=== PATIENT | male | born 1995 | race American Indian/Alaskan Native ===

== ENCOUNTER 2017-01-19 12:30 | Emergency (ER) | payer SELFPAY ==
[2017-01-19] MEDS ORDERED: BOOSTRIX IM ONE (18:10)
[2017-01-19] MEDS ORDERED: HYDROGEN PEROXIDE TP ONE (18:43)
[2017-01-19] MEDS ORDERED: NACL 0.9% IR ONE (18:44)
[2017-01-19 19:39] VITALS: BP 138/84
--- NOTE | 2017-01-19 22:07 | Emergency Department Report ---
Entered by GILBERTO CONTRERAS, acting as scribe for GLORIA MARTINEZ NP. ED Laceration HPI - HPI Chief Complaint: Wound/Laceration Stated Complaint: THUMB LACERATION/WORK RELATED Time Seen by Provider: 01/19/17 18:08 Location: Upper Extremity (distal left thumb) Severity: moderate Tetanus Status: Unknown Laceration Symptoms: Yes Pain, No Foreign Body Sensation, No Numbness, No Weakness Other History: 21 year old male with no significant PMHx presents to the ED c/o a distal left thumb laceration that occurred this morning at 09:45. 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 Rates pain a 2 out of 10 in severity. Associated symptom include left thumb pain, but he denies numbness, tingling, chest pain, loss of consciousness, and shortness of breath. Notes that he cleaned the wound with soap and water [employer]. Allergic to Ibuprofen. ED Review of Systems ROS: Stated complaint: THUMB LACERATION/WORK RELATED Other details as noted in HPI Comment: All other systems reviewed and negative Constitutional: denies: chills, fever, other (tingling and loss of consciousness ) Eyes: denies: eye pain, eye discharge, vision change ENT: denies: ear pain, throat pain Respiratory: denies: orthopnea, shortness of breath, SOB with exertion, SOB at rest Cardiovascular: denies: chest pain, dyspnea on exertion, orthopnea Gastrointestinal: denies: abdominal pain, nausea, diarrhea Musculoskeletal: other (left thumb pain) Skin: other (laceration on left thumb under thumb nail). denies: rash Neurological: denies: numbness Psychiatric: denies: anxiety, depression Hematological/Lymphatic: denies: easy bleeding, easy bruising Laceration Physical Exam - Exam General: Vital signs noted. No distress. Alert and acting appropriately. - General: No Limitations, alert, in no apparent distress - Head Exam: atraumatic, normocephalic - Eye exam: Normal appearance - ENT exam: mucous membranes moist -Neck exam: Normal inspection, lymphadenopathy - Respiratory exam: normal lung sounds bilaterally. No respiratory distress - Cardiovascular Exam: Regular rate, normal rhythm. - GI/Abdominal Exam: Abdomen is soft, normal bowel sounds. - Extremities Exam: normal inspection. Normal capillary refill. Good sensation in left thumb. - Back Exam: normal inspection - Neurological Exam: Present: alert, oriented X3. Normal capillary refill. Good sensation in left thumb. - Skin exam: warm, dry, intact, normal color. No rash. 2 cm laceration to distal left thumb. -Psychiatric exam: Present: normal affect, normal mood Wound Length (cm): 2 (superficial) Laceration Location: Other (2 cm laceration to distal left thumb) Laceration Exam: Yes Normal Distal CMS, No Foreign Body, No Exposed Tendon, Vessel, or Nerve, No Tendon Injury ED Course Vital Signs 01/19/17 13:32 Temperature 98.6 F Pulse Rate 59 L Respiratory 16 Rate Blood Pressure 143/96 O2 Sat by Pulse 100 Oximetry Vital Signs 01/19/17 01/19/17 13:32 19:01 Temperature 98.6 F Pulse Rate 59 L Respiratory 16 Rate Blood Pressure 143/96 Blood Pressure 120/85 [Right] O2 Sat by Pulse 100 Oximetry Vital Signs 01/19/17 01/19/17 13:32 19:01 Temperature 98.6 F Pulse Rate 59 L Respiratory 16 Rate Blood Pressure 143/96 Blood Pressure 120/85 [Right] O2 Sat by Pulse 100 Oximetry Vital Signs 01/19/17 01/19/17 01/19/17 13:32 19:01 19:38 Temperature 98.6 F Pulse Rate 59 L 82 Respiratory 16 16 Rate Blood Pressure 143/96 Blood Pressure 120/85 138/84 [Right] O2 Sat by Pulse 100 100 Oximetry - Reevaluation(s) Reevaluation #1: 01/19/17 19:28 Dr. Morales assessed the patient. Agreed to let us care in the ED. - Laceration /Wound Repair Left Finger Wound Location: upper extremity (left distal thumb) Wound Length (cm): 2 Wound's Depth, Shape: superficial Wound Explored: clean Irrigated w/ Saline (ccs): 200 (soaked finger with Hibiclens) Betadine Prep?: Yes Wound Debrided: minimal Wound Repaired With: Dermabond Layer Closure?: No Progress: This is a 21-year-old male that presents with a laceration of the distal left thumb. Under sterile field. I irrigated with Hibiclens and normal saline. Applied Dermabond to affected area with minimal to none bleeding. Patient tolerated well no signs of any complications noted. ED Medical Decision Making - Medical Decision Making Ed course: 21-year-old male that presents with laceration of the left distal thumb. 1- patient soaked left thumb and 200 mL of normal saline and Hibiclens. 2- Dr. Morales aware of patient and treatment plan. 3- Dermabond to affected thumb. 4- patient tolerated well with no signs of complications. 5- I instructed the patient keep area dry for 24 hours. 5- the time of discharge the patient nontoxic in appearance. Patient stated read treatment plan. No questions noted at this time. Critical care attestation.: If time is entered above; I have spent that time in minutes in the direct care of this critically ill patient, excluding procedure time. ED Disposition Clinical Impression: Laceration Disposition: DISCHARGED TO HOME OR SELFCARE Is pt being admited?: No Does the pt Need Aspirin: No Condition: Stable Instructions: Laceration (ED), Acute Wound Care (ED), Skin Adhesive Care (ED) Additional Instructions: Please follow up with her primary care doctor in 3-5 days. Keep area dry for 24 hours. Please of poor back to emergency room if you have any sinus symptoms of redness , swelling, numbness or tingling, pus or drainage. Referrals: PRIMARY CARE,MD [Primary Care Provider] - 3-5 Days Forms: Work/School Release Form(ED) This documentation as recorded by the BEN smith JASMINE,accurately reflects the service I personally performed and the decisions made by ,GLORIA MARTINEZ, KATHLEEN.
== END 2017-01-19 20:00 | disposition home or self-care (01) ==
LOC: ED 12:30
DX: S61.012A Laceration without foreign body of left thumb without damage to nail, initial encounter (principal); W45.8XXA Other foreign body or object entering through skin, initial encounter; Y93.89 Activity, other specified; Y99.8 Other external cause status; Y92.89 Other specified places as the place of occurrence of the external cause
CPT/HCPCS: 90471; 90715